=== PATIENT | male | born 1965 | race Caucasian/White ===

== ENCOUNTER 2023-01-05 00:10 | Emergency (ER) | payer OTHER ==
[~2023-01-05] VITALS: Ht 175 cm; Wt 125.0 kg
--- NOTE | 2023-01-05 00:31 | ED Lower Extremity ---
General Chief Complaint: Trauma-Non Activation Stated Complaint: FALL,RT LEG PX Nursing Triage Note: TO ED VIA [facility] FROM HOME AFTER FALL DOWN APPROX 4 OUTSIDE STEPS THAT WERE SLICK. C/O RIGHT LEG PAIN, DENIES HITTING HEAD, DENIES LOC. Source: patient, RN/MD, EMS Exam Limitations: no limitations History of Present Illness Date Seen by Provider: Jan 05, 2023 Time Seen by Provider: 00:18 Initial Comments 57-year-old male presents via EMS for right knee pain. He was walking down some wet stairs and slipped down about 4 stairs. He did not hit his head or get knocked out. He is not on any blood thinning medications. Complains of pain just above his right knee, lateral aspect. He has not been able to bear weight on this leg since that time but he did get up and hop on his left leg. He has no chest pain, abdominal pain, upper extremity or Left lower extremity pain. Pain is dull throbbing without radiation. Worse with movement and relieved by rest. Allergies and Home Medications Allergies Coded Allergies: No Known Drug Allergies (Unverified , 01/05/23) Patient Home Medication List Home Medication List Reviewed: Yes Review of Systems Constitutional: no symptoms reported EENTM: no symptoms reported Respiratory: no symptoms reported Cardiovascular: no symptoms reported Gastrointestinal: no symptoms reported Genitourinary: no symptoms reported Musculoskeletal: joint pain Skin: no symptoms reported Psychiatric/Neurological: No Symptoms Reported Past Gjrbodn-Bwvjpe-Bwhcqg Hx Patient Social History Tobacco Use?: No Substance use?: No Alcohol Use?: Yes Alcohol Frequency: Once in a while Immunizations Up To Date Influenza Vaccine Up-to-Date: No; Not Current COVID19 Vaccine Alcohol Still Operator: STATES HAS HAD 2 VACCINES Family Medical History Reviewed Nursing Family Hx No Pertinent Family Hx Physical Exam Vital Signs Vital Signs - First Documented 01/05/23 00:22 Temp 36.7 Pulse 86 Resp 20 B/P (MAP) 134/91 (105) Pulse Ox 97 Capillary Refill : Less Than 3 Seconds Height, Weight, BMI Height: '" Weight: lbs. oz. kg; 40.00 BMI Method: General Appearance: WD/WN, no apparent distress HEENT: normal ENT inspection, pharynx normal Neck: non-tender, supple, normal inspection Cardiovascular: regular rate, rhythm, no murmur Respiratory: chest non-tender, lungs clear, normal breath sounds, no respiratory distress, no accessory muscle use Gastrointestinal: normal bowel sounds, non tender, soft, no organomegaly Hips: bilateral hip non-tender, bilateral hip normal inspection, bilateral hip normal range of motion Legs: bilateral leg non-tender, bilateral leg normal inspection, bilateral leg normal range of motion Knees: left knee non-tender, left knee normal inspection, left knee normal range of motion; right knee soft tissue tenderness (Tenderness palpation lateral aspect of the right knee. There is a small amount of swelling in this area. No abrasion or skin changes. Joint overall is stable.) Feet: bilateral foot non-tender, bilateral foot normal inspection, bilateral foot normal range of motion Neurologic/Tendon: normal sensation, normal motor functions, normal tendon functions Neurologic/Psychiatric: alert, normal mood/affect, oriented x 3 Skin: normal color, warm/dry Progress/Results/Core Measures Results/Orders My Orders Orders - DAISY MCCABE DO Knee, Right, 3 Views (01/05/23 00:25) Vital Signs/I&O 01/05/23 00:22 Temp 36.7 Pulse 86 Resp 20 B/P (MAP) 134/91 (105) Pulse Ox 97 Blood Pressure Mean: 134 Departure Communication (Admissions) Patient is hemodynamically stable. He has a moderate-sized knee joint effusion. No bony abnormalities. Likely ligamentous or tendon injury. Placed in a knee immobilizer given crutches and discharged in stable condition. No other evidence of traumatic injury at this time. He is comfortable agreeable current plan of care. Impression Primary Impression: Right knee pain Qualified Codes: M25.561 - Pain in right knee Additional Impressions: Effusion of knee joint right Fall (on) (from) other stairs and steps, initial encounter Disposition: HOME, SELF-CARE Condition: Stable Departure-Patient Inst. Referrals: JEREMI MARRUFO MD UNKNOWN (PCP) Primary Care Physician Patient Instructions: Knee Pain ED Add. Discharge Instructions: UntilPlease use ibuprofen and Tylenol as needed for pains. Use the knee im mobilizer and crutches by orthopedics. Call to schedule an appointment with your orthopedic surgeon recommended. Return to the emergency department for any severe concerns. Follow-up with your primary doctor for any nonemergent needs. All discharge instructions reviewed with patient and/or family. Voiced understanding. DAISY MCCABE DO Jan 05, 2023 00:31
[2023-01-05 01:16] VITALS: BP 133/90
--- NOTE | 2023-01-05 06:32 | Diagnostic Imaging Report ---
Indication: Right knee injury from a fall 3 views the right knee show no fracture or dislocation. Joint spaces are well-maintained. IMPRESSION: Negative right knee Dictated by: Dictated on workstation # [id number]
== END 2023-01-05 01:18 | disposition home or self-care (01) ==
LOC: EDUNIT# 00:10 → ER 00:18
DX: M25.561 Pain in right knee (principal); M25.461 Effusion, right knee; W10.8XXA Fall (on) (from) other stairs and steps, initial encounter
CPT/HCPCS: 73562; 99282; L1830

== ENCOUNTER 2023-01-10 14:51 | Outpatient (CLI) | payer OTHER ==
[~2023-01-10] VITALS: Ht 175.3 cm; Wt 124.1 kg
[2023-01-10] MEDS ORDERED: ATOR40TA70 PO (15:05)
[2023-01-10] MEDS ORDERED: LISI1TAB44 PO (15:05)
== END 2023-01-10 15:15 | disposition home or self-care (01) ==
LOC: PREOP 14:51
PROVIDERS: ATTEND Orthopaedic Surgery
DX: Z01.818 Encounter for other preprocedural examination (principal)

== ENCOUNTER 2023-01-11 08:46 | Day surgery (SDC) | payer OTHER ==
--- NOTE | 2023-01-10 15:10 | HISTORY AND PHYSICAL ---
DATE OF SERVICE: 01/11/2023 This will be for outpatient surgery on 01/11/2023 for right quadriceps tendon repair. HISTORY: The patient is a 57-year-old gentleman who fell last week when he slipped on a wet deck. He sustained a hyperflexion injury. He has been unable to extend his knee since that point. He has been ambulating with crutches and with a brace. He denies prior history of knee problems. REVIEW OF SYSTEMS: No chest pain. No shortness of breath. No dysuria. PAST MEDICAL HISTORY: Hypertension, hypercholesterolemia, obstructive sleep apnea. PAST SURGICAL HISTORY: Denies. FAMILY HISTORY: Significant for hypertension. MEDICATIONS: CoQ10, atorvastatin, lisinopril, meloxicam. ALLERGIES: NO KNOWN DRUG ALLERGIES. SOCIAL HISTORY: The patient denies alcohol use. PHYSICAL EXAMINATION: GENERAL: The patient is well-developed, well-nourished, in no acute distress. HEENT: Normocephalic, atraumatic. Pupils are equal, round and reactive to light. Oropharynx is clear. NECK: Supple. No lymphadenopathy. LUNGS: Clear to auscultation bilaterally. HEART: Regular rate and rhythm. ABDOMEN: Soft, nontender, nondistended. EXTREMITIES: The patient has a palpable defect in his quadriceps insertion. The quadriceps tendon is palpable approximately 6 cm proximal to the superior pole of the patella. He is unable to extend the knees and he is unable to maintain extension. With quadriceps contraction, there is no movement of his patella noted. IMPRESSION: Right quadriceps tendon disruption. PLAN: Right quadriceps tendon repair. The risks, benefits, options, ramifications and recovery have been discussed at length with the patient. He understands and wishes to proceed. Job ID: [id number] DocumentID: [id number] Dictated Date: 01/10/2023 14:30:35 Commercial Project Manager Date: 01/10/2023 15:08:00 Dictated By: PERICO HELTON MD
[2023-01-11] VITALS (12 sets, daily range): BP systolic 133–167; BP diastolic 69–94
[~2023-01-11] VITALS: Ht 175.3 cm; Wt 124.1 kg
[~2023-01-11 08:46] MED LIST: ATOR40TA70 PO; LISI1TAB44 PO; oxyCODONE/APAP 5/325MG (PERCOCET 5) TABLET PO PRN
[2023-01-11] MEDS ORDERED: ceFAZolin INJECTION 1,000 MG in NS (IVPB) 50 ML IV ONE (09:00)
[2023-01-11] MEDS: LACTATED RINGERS 1,000 ML IV PRN ×2 (09:17→10:30)
--- NOTE | 2023-01-11 09:29 | Progress Note-Pre Operative ---
Pre-Operative Progress Note Date of Available H&P: Jan 10, 2023 Date H&P Reviewed: Jan 11, 2023 Time H&P Reviewed: 07:11 Changes from last HP none Pre-Operative Diagnosis: right quadriceps tear PERICO HELTON MD Jan 11, 2023 09:29
--- NOTE | 2023-01-11 09:30 | Progress Note-Post Operative ---
Post-Operative Progess Note Surgeon (s)/Cable Installer (s) Surgeon PERICO HELTON MD Cable Installer: Yuri Covington Pre-Operative Diagnosis right quadriceps tear Post-Operative Diagnosis right quadriceps tear Procedure & Operative Findings Date of Procedure 01/11/23 Procedure Performed/Findings right quadriceps repair Anesthesia Type GETA Estimated Blood Loss Estimated blood loss (mL): minimal Specimens/Packing Specimens Removed none Packing: none PERICO HELTON MD Jan 11, 2023 09:30
[2023-01-11] MEDS ORDERED: proPOfol 200 MG/20 ML (DIPRIVAN) VIAL IV ONE (09:35)
[2023-01-11] MEDS ORDERED: LIDOCAINE PF 2% 5 ML (XYLOCAINE) VIAL ONE (09:35)
[2023-01-11] MEDS ORDERED: MIDAZOLAM 2 MG/2 ML (VERSED) VIAL ONE (09:38)
[2023-01-11] MEDS ORDERED: BUPIVACAINE 0.25% 30 ML (SENSORCAINE) VIAL ONE (10:03)
[2023-01-11] MEDS ORDERED: fentaNYL INJ 100 MCG/2 ML AMP ONE ×3 (10:07→11:28)
[2023-01-11] MEDS ORDERED: ONDANSETRON 4 MG/2 ML (SDV) Z0FRAN ONE (11:07)
[2023-01-11] MEDS ORDERED: PHENYLEPHRINE 100 MCG/ML 10 ML (ANESTHESIA) SYR ONE (11:07)
[2023-01-11] MEDS ORDERED: SEVOFLURANE (ULTANE) 15 ML INHAL SOLN ONE (11:14)
[2023-01-11] MEDS ORDERED: BUPIVACAINE 0.25% 30 ML (SENSORCAINE) VIAL INJ ONE (11:18)
--- NOTE | 2023-01-11 11:21 | Anesthesia-General Post-Op ---
General Patient Condition Mental Status/LOC: Same as Preop Cardiovascular: Satisfactory Nausea/Vomiting: Absent Respiratory: Satisfactory Pain: Controlled Complications: Absent Post Op Complications Complications None Follow Up Care/Instructions Patient Instructions None needed. Anesthesia/Patient Condition Patient Condition Patient is doing well, no complaints, stable vital signs, no apparent adverse anesthesia problems. No complications reported per nursing. NIKKIE MUNOZ CRNA Jan 11, 2023 11:21
[2023-01-11] MEDS ORDERED: fentaNYL INJ 100 MCG/2 ML AMP IVP ONE (11:30)
[2023-01-11] MEDS ORDERED: ONDANSETRON 4 MG/2 ML (SDV) Z0FRAN IVP PRN (11:30)
--- NOTE | 2023-01-11 17:46 | OPERATIVE REPORT ---
DATE OF SERVICE: 01/11/2023 PREOPERATIVE DIAGNOSIS:. Right quadriceps tendon tear. POSTOPERATIVE DIAGNOSIS: Right quadriceps tendon tear. PROCEDURE: Right quadriceps tendon repair. SURGEON: Barrington Helton MD ART PSYCHOTHERAPIST OR THERAPIST: Yuri Covington, who assisted throughout the procedure and closed the incision. ANESTHESIA: General endotracheal by Geeta Shrestha CRNA. TOURNIQUET TIME: 47 minutes at 300 mmHg. ESTIMATED BLOOD LOSS: Minimal. DRAINS: None. COMPLICATIONS: None. POSTOPERATIVE PLAN: 0-60 degrees range of motion for 2 weeks and then advancing to 90 degrees with brace wear for 6 weeks and begin weightbearing as tolerated in 2 weeks. STATEMENT OF MEDICAL NECESSITY: The patient is a 57-year-old gentleman who a week ago fell on his wet deck and sustained a hyperflexion injury to his right knee. He presented to the office where he was unable to extend his knee. He had a palpable defect at the quadriceps insertion site. Due to functional impairment, the patient elected to proceed with surgical intervention. DESCRIPTION OF PROCEDURE: After risks and benefits of the procedure were discussed and questions were answered and informed consent was signed and placed on the chart, the operative site was confirmed in the preoperative holding area and initialed by surgeon. The patient was then transferred to the operating room. After adequate levels of general endotracheal anesthetic were obtained, timeout was called, confirming the operative site. The right lower extremity was prepped and draped in the usual sterile fashion with leg elevated and the knee flexed, tourniquet inflated to 300 mmHg. Longitudinal incision was made over the patella extending proximally. The underlying soft tissues were carefully dissected. The quadriceps was completely disrupted from its patellar attachment and extended into the medial and lateral retinaculum in a transverse fashion. The insertion site was debrided with a rongeur and two #5 Tevdek were used in a locked [place] fashion from the distal aspect of the tendon extending proximally. Then, crossing over and going back distally. This left 4 arms of suture. Three drill holes were then placed in the patella in a longitudinal fashion, being careful to stay superficial to the articular surface. The sutures were passed sequentially with a 2 central sutures passer through the center tunnel and through the medial tunnel, lateral to the lateral tunnel release and these were then tied distally and then to one another with the knee held in extension and excellent repair was obtained. The retinaculum was closed with #1 Vicryl in [id number] interrupted fashion with excellent repair obtained. The knee was flexed and the patient could easily flex to 120 degrees with no undue tension at the repair site. The wound had been copiously irrigated prior to repair and then was reirrigated after repair, 0 Vicryl was used for deep subcutaneous layer, 2-0 Vicryl for the superficial subcutaneous layer, julienne used on the skin. A soft dressing and a brace were applied. The tourniquet was deflated and the patient was transported to the recovery room awake and in stable condition. Job ID: [id number] DocumentID: [id number] Dictated Date: 01/11/2023 11:20:36 Diesel Engine Mechanic Apprentice Date: 01/11/2023 17:44:00 Dictated By: BARRINGTON HELTON MD
== END 2023-01-11 13:15 ==
LOC: SDC 08:46
PROVIDERS: ATTEND Orthopaedic Surgery
DX: S76.111A Strain of right quadriceps muscle, fascia and tendon, initial encounter (principal); G89.18 Other acute postprocedural pain; G47.33 Obstructive sleep apnea (adult) (pediatric); E66.01 Morbid (severe) obesity due to excess calories; W01.0XXA Fall on same level from slipping, tripping and stumbling without subsequent striking against object, initial encounter; Z68.41 Body mass index [BMI] 40.0-44.9, adult
CPT/HCPCS: 87081